=== PATIENT | male | born 1990 | race African-American/Black ===

== ENCOUNTER 2021-06-19 09:12 | Emergency (ER) | payer OTHER ==
[~2021-06-19] VITALS: Ht 177.8 cm; Wt 83.9 kg
--- NOTE | ~2021-06-19 | EMS ---
[facility] [address] [facility] [place] [address] EMS Patient Care Report Name: KATI LEW Room: PRE M.R.#: [id number] Admission: Attend Phys: Discharge: Date of : 88 Report #: [id number] THIS REPORT FOR: //name// Report Transmitted: 06/19/2021 10:11 EMS Care Summary [facility] Incident [id number] @ 06/19/2021 08:35 Incident Location [address] [place] [address] Patient kati lew Male, 30 Years 1990 Patient Address [address] [place], [place] [id number] Patient History Hypertension (HTN),Dysthymic disorder,Anxiety disorder, unspecified, Patient Allergies No known allergies, Chief Complaint Hypertension/related symptoms Disposition Transported No Lights/[place] Dispatch Reason Sick Person Transported To [facility] Narrative [facility] WAS DISPATCHED TO THE LISTED LOCAL ADDRESS ON hypertension ISSUES. ON SCENE, IFD WALKED THE PATIENT TO THE ambulance. THE PATIENT HAD A NORMAL gait WITH purposeful MOVEMENTS AND HAD NO OBVIOUS IMMEDIATE LIFE THREATS OR SIGNS OF DISTRESS. IFD STATED THE PATIENT HAS HAD HYPERTENSION FOR THE LAST FEW DAYS AND WOULD LIKE TO BE TRANSPORTED TO THE HOSPITAL FOR EVALUATION. THE PATIENT WAS ABLE TO GET INTO THE AMBULANCE AND LAY ON THE STRETCHER WITHOUT [facility] [address] [place] [address] EMS Patient Care Report Name: KATI LEW Room: [facility]#: [id number] Admission: Attend Phys: Discharge: Date of : 88 Report #: [id number] assistance OR INCIDENT. INSIDE THE AMBULANCE, THE PATIENT WAS PLACED ON THE MONITOR AND SECURED TO THE STRETCHER WITH THE LAP BELTS. A FULL SET OF VITALS AND MANUAL BLOOD pressure WERE OBTAINED. PATIENT DEMOGRAPHICS AND MEDICAL HISTORY WERE GATHERED. AN ASSESSMENT WAS COMPLETE DETAILS OF THE EVENTS WERE GATHERED. THE PATIENT STATED HE USED TO TAKE MEDICATION FOR hypertension BUT STOPPED TAKING IT ABOUT A YEAR AGO BECAUSE HE STOPPED HAVING "ISSUES." THE PATIENT STATED FOR THE LAST TWO (2) DAYS, HIS SYSTOLIC PRESSURE HAS BEEN IN THE 200'S. HE SAID HE HAS HAD A continuous HEADACHE AND WEAKNESS ALONG WITH THE hypertension. THE PATIENT ALSO STATED A FEW DAYS AGO HIS VISION BECAME BLURRY AND HE SAW "SPOTS" BUT HAS RESOLVED AND NOT RETURNED. HE STATED HE HAS ALSO EXPERIENCED SOME NAUSEA AND CHEST PRESSURE BUT WAS NOT CURRENTLY HAVING THOSE SYMPTOMS. AN ECG WAS OBTAINED. AN IV WAS ESTABLISHED. A BLOOD DRAWL AND BLOOD GLUCOSE WERE OBTAINED. TRANSPORT WAS INITIATED. VITALS WERE MONITORED EN-ROUTE. A [place] STROKE SCALE AND NEURO EXAM WERE COMPLETE. A LEVEL OF consciousness WAS established. THE PATIENT REMAINED STABLE AND TALKATIVE DURING TRANSPORT. AT DESTINATION, ALL MONITORING WAS REMOVED. THE PATIENT SIGNED THE PRIVACY AND TRANSFER FORM. HE WAS UNLOADED FROM THE AMBULANCE AND TAKEN TO ROOM 11. THE STRETCHER WAS LOWERED AND LAP BELTS REMOVED. THE PATIENT WAS ABLE TO STAND, WALK, AND GET INTO THE HOSPITAL BED WITHOUT ASSISTANCE OR INCIDENT. I GAVE RN FLAVIO A VERBAL PATIENT REPORT ALONG WITH THE BLOOD DRAWL. SHE SIGNED THE RECEIVING FACILITY FORM. COMPLETING THE TRANSFER OF CARE. [facility] CLEARED THE CALL. Initial Vitals @08:42Pain: 03/08, @09:07Pain: 03/08, @08:42SpO2: 100, @08:50SpO2: 100, @08:55SpO2: 99, @08:58SpO2: 99, @09:07SpO2: 99, @08:45 @08:50P: 90,R: 14,BP: 191/125, @08:58P: 69,R: 12,BP: 163/120, @09:07P: 101,R: 12,BP: 181/132, @08:43P: 105,R: 14,BP: 212/118, @08:50GCS: 15, @08:58GCS: 15, @09:07GCS: 15, @08:43GCS: 15, @08:56 @08:53 @08:49Glucose: 115, Assessments @08:40MENTAL:SKIN:HEENT:[place] [address] EMS Patient Care Report Name: KATI LEW Room: PRE M.R.#: [id number] Admission: Attend Phys: Discharge: Date of : 88 Report #: [id number] SOUNDS:ABDOMEN:PELVIS//GI:EXTREMITIES:PULSE:NEURO: Impression Hypertension Procedures @08:48 IV Therapy - cc () Site: Antecubital-Left Response: UnchangedSucceeded @08:45 12-Lead ECG Response: UnchangedSucceeded Timeline 08:30,Call Received 08:34,Dispatch Notified 08:34,Psap Call 08:35,Dispatched 08:35,En Route 08:39,On Scene 08:40,At Patient 08:42,BP: / M,PULSE: ,RR: R,SPO2: Ox,ETCO2: ,BG: ,PAIN: 7,GCS: , 08:42,BP: / M,PULSE: ,RR: R,SPO2: 100 Ox,ETCO2: ,BG: ,PAIN: ,GCS: , 08:43,BP: 212/118 M,PULSE: 105,RR: 14 R,SPO2: Ox,ETCO2: ,BG: ,PAIN: ,GCS: , 08:43,BP: / M,PULSE: ,RR: R,SPO2: Ox,ETCO2: ,BG: ,PAIN: ,GCS: 15, 08:45,12-Lead ECG,Response: UnchangedSucceeded, 08:45,BP: / M,PULSE: ,RR: R,SPO2: Ox,ETCO2: ,BG: ,PAIN: ,GCS: , 08:48,IV Therapy - cc Site: Antecubital-Left,Response: UnchangedSucceeded, 08:49,BP: / M,PULSE: ,RR: R,SPO2: Ox,ETCO2: ,B,PAIN: ,GCS: , 08:50,BP: / M,PULSE: ,RR: R,SPO2: 100 Ox,ETCO2: ,BG: ,PAIN: ,GCS: , 08:50,BP: 191/125 M,PULSE: 90,RR: 14 R,SPO2: Ox,ETCO2: ,BG: ,PAIN: ,GCS: , 08:50,BP: / M,PULSE: ,RR: R,SPO2: Ox,ETCO2: ,BG: ,PAIN: ,GCS: 15, 08:51,Depart Scene 08:53,BP: / M,PULSE: ,RR: R,SPO2: Ox,ETCO2: ,BG: ,PAIN: ,GCS: , 08:55,BP: / M,PULSE: ,RR: R,SPO2: 99 Ox,ETCO2: ,BG: ,PAIN: ,GCS: , 08:56,BP: / M,PULSE: ,RR: R,SPO2: Ox,ETCO2: ,BG: ,PAIN: ,GCS: , 08:58,BP: / M,PULSE: ,RR: R,SPO2: 99 Ox,ETCO2: ,BG: ,PAIN: ,GCS: , 08:58,BP: 163/120 M,PULSE: 69,RR: 12 R,SPO2: Ox,ETCO2: ,BG: ,PAIN: ,GCS: , 08:58,BP: / M,PULSE: ,RR: R,SPO2: Ox,ETCO2: ,BG: ,PAIN: ,GCS: 15, 09:05,At Destination 09:07,BP: / M,PULSE: ,RR: R,SPO2: Ox,ETCO2: ,BG: ,PAIN: 7,GCS: , 09:07,BP: / M,PULSE: ,RR: R,SPO2: 99 Ox,ETCO2: ,BG: ,PAIN: ,GCS: , 09:07,BP: 181/132 M,PULSE: 101,RR: 12 R,SPO2: Ox,ETCO2: ,BG: ,PAIN: ,GCS: , 09:07,BP: / M,PULSE: ,RR: R,SPO2: Ox,ETCO2: ,BG: ,PAIN: ,GCS: 15, 09:21,Call Closed Disclaimer v1.1 Copyright 2020 [employer] This EMS Care Summary contains data elements from [place] [address] EMS Patient Care Report Name: KATI LEW Room: PRE M.R.#: [id number] Admission: Attend Phys: Discharge: Date of : 88 Report #: [id number] (which may be displayed differently). It is designed to provide pertinent information for the following purposes: continuity of care, clinical quality, and state data reporting. The complete legal record is available to ED staff and administrators of the receiving hospital in [facility]'s Patient Tracker. All data is provided "as is."
[2021-06-19 10:55] LABS: ABSOLUTE BASOPHILS 0.1 thou/uL (0.0-0.2); ABSOLUTE EOSINOPHILS 0.1 thou/uL (0.0-0.7); ABSOLUTE LYMPHOCYTES 1.8 thou/uL (0.8-5.3); ABSOLUTE MONOCYTES 0.5 thou/uL (0.0-1.2); ABSOLUTE NEUTROPHILS 2.9 thou/uL (1.6-8.1); EOSINOPHILS 1.9 %; HEMATOCRIT 45.1 % (42.0-52.0); HEMOGLOBIN 15.3 gm/dL (14.0-18.0); LYMPHOCYTES 34.1 %; MCH 27.1 pg (26.0-34.0); MCHC 33.8 g/dL (28.0-37.0); MCV 80.2 fL (80.0-100.0); MONOCYTES 9.2 %; MPV 8.6 fl. (7.2-11.1); NUCLEATED RBCS 0 /100WBC; PLATELET COUNT* 208 thou/uL (150-400); POLYS 53.8 %; RBC 5.62 mil/uL (4.50-6.00); RDW-CV 15.1 % (10.5-14.5); WBC 5.4 thou/uL (4.0-11.0)
[2021-06-19 11:05] LABS: CALCIUM 8.6 mg/dL (8.5-10.1); CREATININE 1.2 mg/dL (0.6-1.3); POTASSIUM 4.3 mmol/L (3.5-5.1)
[2021-06-19 11:10] LABS: ALBUMIN 3.8 g/dL (3.4-5.0); TOTAL PROTEIN 7.5 g/dL (6.4-8.2)
[2021-06-19 11:28] VITALS: BP 154/86
--- NOTE | 2021-06-20 11:06 | EKG ---
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
== END 2021-06-19 11:29 | disposition home or self-care (01) ==
LOC: M.ERS 09:12
PROVIDERS: Physician Assistant
DX: I10 Essential (primary) hypertension (principal)